=== PATIENT | male | born 2005 | race Two or more races ===

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

== ENCOUNTER 2024-09-06 00:14 | Emergency (ER) | payer BC, MEDICAID ==
[2024-09-06 02:58] VITALS: PULSE 85
[2024-09-06 03:01] VITALS: BP 133/81
== END 2024-09-06 01:10 | disposition home or self-care (01) ==
LOC: VM.ED 00:14
DX: B34.9 Viral infection, unspecified (principal); Z91.030 Bee allergy status; Z79.899 Other long term (current) drug therapy
CPT/HCPCS: 87428-QW; 99283